=== PATIENT | female | born 1970 ===

== ENCOUNTER 2018-03-21 08:15 | Day surgery (SDC) | payer OTHER ==
[~2018-03-21 08:15] MED LIST: SINGULAIR10 MG PO; ZYRTEC10 M3 PO
== END 2018-03-21 13:22 | disposition home or self-care (01) ==
LOC: AMB-ENDOS 08:15
DX: K63.5 Polyp of colon (principal); N81.6 Rectocele

== ENCOUNTER 2018-03-25 06:00 | Day surgery (SDC) | payer OTHER ==
[~2018-03-25] VITALS: Ht 157.5 cm; Wt 65.8 kg
[2018-03-26] MEDS ORDERED: RECTICARE30 GM TOP (07:25)
[2018-03-26] MEDS ORDERED: PERCOCET 5-3251 EACH PO (07:25)
== END 2018-03-26 09:00 | disposition home or self-care (01) ==
LOC: O/R 06:00 → CIR.AMB 06:00 → SURH 06:00 → EDSTATUS 10:45 → SURH 10:45 → O/R 13:49 → SURG 13:49 → CIR.AMB 03-26 09:00 → O/R 03-26 10:25 → SURG 03-26 10:25
DX: N81.6 Rectocele (principal); K59.02 Outlet dysfunction constipation; K63.5 Polyp of colon; E03.8 Other specified hypothyroidism; D12.4 Benign neoplasm of descending colon; D12.5 Benign neoplasm of sigmoid colon; R73.01 Impaired fasting glucose

== ENCOUNTER 2018-04-04 19:00 | Inpatient (IN) | payer OTHER ==
[~2018-04-04] VITALS: Ht 157.5 cm; Wt 63.5 kg
[~2018-04-04 19:00] MED LIST changes: +PERCOCET 5-3251 EACH PO; +RECTICARE30 GM TOP
[2018-04-08] MEDS ORDERED: LEVAQUIN750 MG PO (11:24)
[2018-04-08] MEDS ORDERED: CARAFATE1 GM PO (11:25)
== END 2018-04-08 14:28 | disposition home or self-care (01) | DRG 920 ==
LOC: ER 19:00 → SURH 04-05 08:29
PROVIDERS: ADMIT Surgery
PROC: 3E0T3BZ Introduction of Anesthetic Agent into Peripheral Nerves and Plexi, Percutaneous Approach (ICD-10-PCS; 2018-04-05)
PROC: 0DJD8ZZ Inspection of Lower Intestinal Tract, Via Natural or Artificial Opening Endoscopic (ICD-10-PCS; principal; 2018-04-05 11:00)
DX: K91.841 Postprocedural hemorrhage of a digestive system organ or structure following other procedure (principal); K62.5 Hemorrhage of anus and rectum; N39.0 Urinary tract infection, site not specified; B95.2 Enterococcus as the cause of diseases classified elsewhere; K59.09 Other constipation; K64.8 Other hemorrhoids; R73.01 Impaired fasting glucose; K62.89 Other specified diseases of anus and rectum